=== PATIENT | male | born 1965 | race African-American/Black ===

== ENCOUNTER 2017-12-23 10:34 | Emergency (ER) | payer MEDICAID ==
[~2017-12-23] VITALS: Ht 172.7 cm; Wt 102.0 kg
[2017-12-23] MEDS ORDERED: IBUPROFEN 600MG TABLET PO ONE (15:45)
[2017-12-23 17:45] VITALS: BP 120/77
== END 2017-12-23 17:45 | disposition home or self-care (01) ==
LOC: ER 10:34
DX: S93.401A Sprain of unspecified ligament of right ankle, initial encounter (principal); M51.36 Other intervertebral disc degeneration, lumbar region; E11.9 Type 2 diabetes mellitus without complications; W50.2XXA Accidental twist by another person, initial encounter; Y93.89 Activity, other specified; Y92.89 Other specified places as the place of occurrence of the external cause; Y99.8 Other external cause status
CPT/HCPCS: 72100; 73610; 99284

== ENCOUNTER 2022-03-25 05:35 | Inpatient (IN) | payer MEDICAID, OTHER ==
[~2022-03-25] VITALS: Ht 177.8 cm; Wt 117.9 kg
[2022-03-25] MEDS ORDERED: MORPHINE SULFATE 4 MG/ML CPJ (NOT FOR IM USE) IV STA (05:46)
[2022-03-25 06:40] LABS: CHLORIDE 101 mEq/L (98-107)
[2022-03-25 06:47] LABS: BASOPHILS % 0.4 % (0.0-2.0); EOSINOPHILS % 0.6 % (0.0-5.0); HEMATOCRIT. 42.9 % (42.0-52.0); HEMOGLOBIN. 14.5 g/dL (14.0-18.0); MEAN CORPUSCULAR VOLUME 88.7 fL (80.0-94.0); MEAN PLATELET VOLUME 9.3 fl (7.4-10.4); PLATELET 202 x1000/uL (130-400); RED BLOOD CELL COUNT 4.84 mill/uL (4.7-6.1); RED CELL DISTRIBUTION WIDTH 12.8 % (11.6-14.6)
[2022-03-25] MEDS ORDERED: COLCHICINE 0.6MG TABLET PO ONE (09:30)
[2022-03-25] MEDS ORDERED: IOHEXOL-350 100 ML BOTTLE ONE (10:42)
[2022-03-25] MEDS ORDERED: DOCUSATE SODIUM 100MG CAPSULE PO PRN (14:30)
[2022-03-25] MEDS ORDERED: GUAIFENESIN 200MG/10ML SUGAR FREE UDC PO PRN (14:30)
[2022-03-25] MEDS ORDERED: ACETAMINOPHEN 325MG TABLET PO PRN ×2 (14:30)
[2022-03-25] MEDS ORDERED: ONDANSETRON HCL 4MG/2ML INJ IV PRN (14:30)
[2022-03-25] MEDS ORDERED: DIPHENHYDRAMINE 50MG/ML VIAL IV PRN (14:30)
[2022-03-25] MEDS ORDERED: IPRATROPIUM/ALBUTEROL 0.5-3(2.5)MG/3ML NEB HHN PRN (14:30)
[2022-03-25] MEDS ORDERED: CLONIDINE 0.1MG TABLET PO PRN (14:30)
[2022-03-25] MEDS ORDERED: ASPIRIN 81MG TABLET PO SCH (14:45)
[2022-03-25] MEDS ORDERED: KETOROLAC 60MG/2ML VIAL IM PRN (14:45)
[2022-03-25] MEDS ORDERED: DEXTROSE 50% WATER 50ML SYRINGE IV PRN (14:45)
[2022-03-25 15:00] VITALS: BP 155/86
[2022-03-25] MEDS ORDERED: KETOROLAC 30MG/ML VIAL IM PRN (15:15)
[2022-03-25 16:00] VITALS: BP 124/73
[2022-03-25] MEDS ORDERED: SODIUM CHLORIDE 0.9% 1,000 ML IV ONE (16:00)
[2022-03-25] MEDS ORDERED: ALBUTEROL (0.083%) 2.5MG/3ML NEB HHN PRN (16:30)
[2022-03-25] MEDS ORDERED: IPRATROPIUM BROMIDE (0.02%) 0.5MG/2.5ML NEB HHN PRN (16:30)
[2022-03-25] MEDS: AZITHROMYCIN 500 MG TABLET PO SCH (16:33)
[2022-03-25] MEDS: BLOOD SUGAR DIAGNOSTIC STRIP TEST SCH ×2 (17:09→21:00)
[2022-03-25 17:10] LABS: FOLIC ACID (FOLATE) SERUM 9.9 ng/mL (>5.38)
[2022-03-25] MEDS: INSULIN LISPRO 100 UNITS/ML SUBCUT SCH ×2 (17:47→21:00)
[2022-03-25] MEDS: ENOXAPARIN 30MG/0.3ML SYR SUBCUT SCH (17:48)
[2022-03-25] MEDS ORDERED: METF-874 MT (18:13)
[2022-03-25 18:25] LABS: T4 FREE 1.36 ng/dL (0.76-1.46)
[2022-03-25 20:00] VITALS: BP 113/74
[2022-03-26] VITALS: BP 145/89
[2022-03-26 04:00] VITALS: BP 142/74
[2022-03-26] MEDS: ENOXAPARIN 30MG/0.3ML SYR SUBCUT SCH (05:34)
[2022-03-26] MEDS: INSULIN LISPRO 100 UNITS/ML SUBCUT SCH ×2 (07:10→12:10)
[2022-03-26 07:21] LABS: CLARITY URINE CLEAR (CLEAR); COLOR URINE YELLOW (YELLOW); KETONES URINE NEGATIVE (NEGATIVE); LEUKOCYTE ESTERASE URINE NEGATIVE (NEGATIVE); NITRITE URINE NEGATIVE (NEGATIVE); OCCULT BLOOD URINE NEGATIVE (NEGATIVE); PROTEIN URINE 2+ (NEGATIVE); SPECIFIC GRAVITY URINE 1.028 (1.005-1.030)
[2022-03-26] MEDS: BLOOD SUGAR DIAGNOSTIC STRIP TEST SCH (07:32)
[2022-03-26] MEDS ORDERED: PANTOPRAZOLE 40MG DR TABLET PO SCH (07:50)
[2022-03-26 08:00] VITALS: BP 120/81
[2022-03-26 08:32] LABS: *AMPHETAMINES SCREEN URINE NEGATIVE (NEGATIVE); *BARBITURATES SCREEN URINE NEGATIVE (NEGATIVE); *BENZODIAZEPINES SCREEN URINE NEGATIVE (NEGATIVE); *COCAINE SCREEN URINE NEGATIVE (NEGATIVE); CANNABINOID URINE SCREEN NEGATIVE (NEGATIVE); METHADONE URINE SCREEN NEGATIVE (NEGATIVE); OPIATES URINE SCREEN PRESUMTIVE POSITIVE (NEGATIVE); PHENCYCLIDINE URINE SCREEN NEGATIVE (NEGATIVE)
[2022-03-26] MEDS: AZITHROMYCIN 500 MG TABLET PO SCH (09:05)
[2022-03-26 09:24] VITALS: BP 120/81
[2022-03-26 11:06] LABS: HEMOGLOBIN 14.4 g/dL (14.0-18.0); MEAN CORPUSCULAR VOLUME 89.6 fL (80.0-94.0); PLATELET 203 x1000/uL (130-400); RED CELL DISTRIBUTION WIDTH 12.5 % (11.6-14.6)
[2022-03-26 11:22] VITALS: BP 120/81
[2022-03-26 12:10] LABS: CHLORIDE 105 mEq/L (98-107); CREATINE KINASE 93 IU/L (39-308); CREATINE KINASE MB FRACTION < 1.0 ng/mL (0.5-3.6); PHOSPHORUS 3.3 mg/dL (2.5-4.9)
== END 2022-03-26 12:52 | disposition home or self-care (01) | DRG 179 ==
LOC: ER 05:35 → MICUSO 12:14 → EDBEDREQ 12:16 → EDBEDREQTM 12:16 → 7EST 15:01
PROVIDERS: ADMIT Hospitalist; ATTEND Hospitalist
DX: U07.1 COVID-19 (principal); E11.9 Type 2 diabetes mellitus without complications; M10.9 Gout, unspecified; E66.9 Obesity, unspecified; R07.89 Other chest pain; F41.9 Anxiety disorder, unspecified; Z68.38 Body mass index [BMI] 38.0-38.9, adult; Z72.820 Sleep deprivation; Z86.711 Personal history of pulmonary embolism; Z79.84 Long term (current) use of oral hypoglycemic drugs; Z68.37 Body mass index [BMI] 37.0-37.9, adult
CPT/HCPCS: 36415; 71045; 71275; 73630; 80053; 80061; 80305; 81003; 82550; 82553; 82607; 82746; 82962; 83036; 83605; 83735; 83880; 84100; 84145; 84439; 84443; 84484; 84550; 85025; 85027; 85651; 87426; 93005; 99285; C9803; J1650; J2270; Q9967

== ENCOUNTER 2022-05-07 23:08 | Emergency (ER) | payer OTHER ==
[~2022-05-07] VITALS: Ht 180.3 cm; Wt 119.8 kg
[~2022-05-07 23:08] MED LIST: METF-874 MT
[2022-05-08] MEDS ORDERED: TRAMADOL 50MG TABLET PO ONE (00:45)
[2022-05-08 01:08] VITALS: BP 137/76
== END 2022-05-08 03:13 | disposition home or self-care (01) ==
LOC: ER 23:08
DX: S90.112A Contusion of left great toe without damage to nail, initial encounter (principal); S00.83XA Contusion of other part of head, initial encounter; E11.9 Type 2 diabetes mellitus without complications; W01.0XXA Fall on same level from slipping, tripping and stumbling without subsequent striking against object, initial encounter; Y93.89 Activity, other specified; Y92.9 Unspecified place or not applicable
CPT/HCPCS: 73660; 93005; 99285

== ENCOUNTER 2023-10-08 16:42 | Emergency (ER) | payer MEDICAID, OTHER ==
[~2023-10-08] VITALS: Ht 180.3 cm; Wt 98.0 kg
[2023-10-08 16:43] VITALS: BP 137/69; PULSE 84; RESP 18; TEMP 98.1; O2SAT 97
== END 2023-10-08 23:11 | disposition left against medical advice (07) ==
LOC: ER 16:42
DX: M79.609 Pain in unspecified limb (principal); Z53.21 Procedure and treatment not carried out due to patient leaving prior to being seen by health care provider

== ENCOUNTER 2023-10-11 02:45 | Emergency (ER) | payer MEDICAID ==
[~2023-10-11] VITALS: Ht 180.3 cm; Wt 103.0 kg
[2023-10-11 02:56] VITALS: O2SAT 100
[2023-10-11] MEDS: ACETAMINOPHEN 325MG TABLET PO ONE (04:00)
[2023-10-11 05:30] VITALS: BP 132/74; PULSE 80; RESP 20; TEMP 36.83628; O2SAT 100
[2023-10-11] MEDS ORDERED: ACET-2708 MT (05:40)
== END 2023-10-11 05:45 | disposition home or self-care (01) ==
LOC: ER 02:45
DX: R68.84 Jaw pain (principal); R51.9 Headache, unspecified; E11.9 Type 2 diabetes mellitus without complications
CPT/HCPCS: 70486; 99284